=== PATIENT | male | born 1955 ===

== ENCOUNTER 2023-06-30 06:25 | Day surgery (SDC) | payer OTHER, SELFPAY ==
[2023-06-30] VITALS (10 sets, daily range): BP systolic 133–175; BP diastolic 74–90; BMI 21.2
== END 2023-06-30 15:55 | disposition home or self-care (01) ==
LOC: SDS 06:25
PROVIDERS: ATTENDING PHYSICIAN Specialist
DX: N20.1 Calculus of ureter (principal)
CPT/HCPCS: 52356; 74018; 76000; C1894; C2617